=== PATIENT | female | born 1980 | race Caucasian/White ===

== ENCOUNTER 2020-03-30 12:51 | Emergency (ER) | payer BC ==
[2020-03-30 13:06] VITALS: BP 145/109; PULSE 100
[2020-03-30] MEDS ORDERED: Ketorolac 30 MG/ML SDV IM ONE (13:31)
--- NOTE | 2020-03-30 14:24 | EDM.PDOC ---
Scribed by Concepcion Richards 03/30/20 2886 for Natalya Velasquez MD ED HPI GENERAL MEDICAL PROBLEM - General Chief Complaint: Upper Extremity Injury/Pain Stated Complaint: SEVRE BACK PAIN Time Seen by Provider: 03/30/20 13:23 Source of Information: Reports: Patient, RN, RN Notes Reviewed History Limitations: Reports: No Limitations - History of Present Illness INITIAL COMMENTS - FREE TEXT/NARRATIVE: Patient presents to the ER with hip pain for a weeks ago. She eventually goes to chiropractor when it appears and it goes away or she waits it out, but not this time. Yesterday she was to [place] with daughter to [employer] and had trouble getting out of the car. At home she rested and took OTC. This A.M. woke again with pain adn took Aleve, Tylenol and Advil. It was better, then rolled back and thought something exploded back there. Last seen in ER 7 years ago. Wednesday if her next approximately. No numbness or tingling. Onset: Gradual Duration: Getting Worse Location: Reports: Back Quality: Reports: Ache Severity: Moderate Improves with: Reports: None Worsens with: Reports: None Associated Symptoms: Reports: No Other Symptoms - Related Data Allergies Allergy/AdvReac Type Severity Reaction Status Date / Time Penicillins Allergy Hives Verified 03/30/20 13:01 Sulfa (Sulfonamide Allergy Hives Verified 03/30/20 13:01 Antibiotics) Home Meds: Home Meds Amitriptyline [Elavil] 25 mg PO BEDTIME 02/13/16 [History] Hydroxychloroquine Sulfate [Plaquenil] 200 mg PO DAILY 02/13/16 [History] Metoprolol Succinate [Toprol XL 100mg] 200 mg PO DAILY 02/13/16 [History] Sertraline HCl [Zoloft] 100 mg PO DAILY 02/13/16 [History] Past Medical History Cardiovascular History: Reports: Hypertension Respiratory History: Reports: None Gastrointestinal History: Reports: None Genitourinary History: Reports: None [employer]IC History: Reports: None Musculoskeletal History: Reports: SLE, Other (See Below) Other Musculoskeletal History: chronic hip pain Neurological History: Reports: None Psychiatric History: Reports: Depression Endocrine/Metabolic History: Reports: Obesity/BMI 30+ Hematologic History: Reports: None Immunologic History: Reports: None Oncologic (Cancer) History: Reports: None Dermatologic History: Reports: None - Infectious Disease History Infectious Disease History: Reports: None - Past Surgical History Head Surgeries/Procedures: Reports: None HEENT Surgical History: Reports: Myringotomy w Tube(s), Tonsillectomy Social & Family History - Family History Family Medical History: Noncontributory - Tobacco Use Smoking Status *Q: Heavy Tobacco Smoker Years of Tobacco use: 20 Packs/Tins Daily: 1 - Caffeine Use Caffeine Use: Reports: Coffee, Soda, Tea - Recreational Drug Use Recreational Drug Use: No - Living Situation & Occupation Living situation: Reports: with Family, Occupation: Employed Review of Systems - Review of Systems Review Of Systems: Comprehensive ROS is negative, except as noted in HPI. ED EXAM, GENERAL - Physical Exam Exam: See Below Exam Limited By: No Limitations General Appearance: Alert, WD/WN, No Apparent Distress Eye Exam: Bilateral Eye: EOMI, Normal Inspection, PERRL Ears: Normal External Exam, Normal Canal, Hearing Grossly Normal, Normal TMs Nose: Normal Inspection, Normal Mucosa, No Blood Throat/Mouth: Normal Inspection, Normal Lips, Normal Teeth, Normal Gums, Normal Oropharynx, Normal Voice, No Airway Compromise Head: Atraumatic, Normocephalic Neck: Normal Inspection, Supple, Non-Tender, Full Range of Motion Respiratory/Chest: No Respiratory Distress, Lungs Clear, Normal Breath Sounds, No Accessory Muscle Use, Chest Non-Tender Cardiovascular: Normal Peripheral Pulses, Regular Rate, Rhythm, No Edema, No Gallop, No JVD, No Murmur, No Rub GI/Abdominal: Normal Bowel Sounds, Soft, Non-Tender, No Organomegaly, No Distention, No Abnormal Bruit, No Mass (Female) Exam: Deferred Rectal (Female) Exam: Deferred Back Exam: Normal Inspection, Full Range of Motion, NT Extremities: Other (right hip/lateral back. TTP over right SI joint.) Neurological: Alert, Oriented, CN II-XII Intact, Normal Cognition, Normal Gait, Normal Reflexes, No Motor/Sensory Deficits Psychiatric: Normal Affect, Normal Mood Skin Exam: Warm, Dry, Intact, Normal Color, No Rash Lymphatic: No Adenopathy Course - Vital Signs Last Recorded V/S: Last Vital Signs Temp 97.3 F 03/30/20 13:03 Pulse 100 03/30/20 13:03 Resp 18 03/30/20 13:03 BP 145/109 H 03/30/20 13:03 Pulse Ox 100 03/30/20 13:03 - Orders/Labs/Meds Meds: Medications Discontinued Medications Generic Name Dose Route Start Last Admin Trade Name Jim PRN Reason Stop Dose Admin Ketorolac Tromethamine 60 mg 03/30/20 13:31 03/30/20 13:55 Toradol IM 03/30/20 13:32 60 mg ONETIME ONE Administration Departure - Departure Time of Disposition: 14:21 Disposition: Home, Self-Care 01 Condition: Good Clinical Impression: SI (sacroiliac) joint inflammation - Discharge Information *PRESCRIPTION DRUG MONITORING PROGRAM REVIEWED*: Not Applicable *COPY OF PRESCRIPTION DRUG MONITORING REPORT IN PATIENT TERRANCE: Not Applicable Instructions: Sacroiliac Joint Dysfunction Forms: ED Department Discharge Additional Instructions: Avoid use of aleve and advil while taking prednisone. May still take tylenol Sepsis Event Note (ED) - Evaluation Sepsis Screening Result: No Definite Risk - Focused Exam Vital Signs: Vital Signs Temp Pulse Resp BP Pulse Ox 03/30/20 13:03 97.3 F 100 18 145/109 H 100 - Assessment/Plan Assessment:: 40 yo female with acute flare of SI joint inflammation Plan: Toradol in the ER Prednisone script for steroid burst. Avoid NSAID use while taking. May take tylenol Keep upcoming chiropractor appointment I have read and agree with the documentation that has been completed regarding this visit. By signing this record, I attest that the documentation was completed in my physical presence and is an accurate record of the encounter.
== END 2020-03-30 14:29 | disposition home or self-care (01) ==
LOC: DL.ED 12:51
DX: M46.1 Sacroiliitis, not elsewhere classified (principal); E66.9 Obesity, unspecified; F32.9 Major depressive disorder, single episode, unspecified; I10 Essential (primary) hypertension; F17.210 Nicotine dependence, cigarettes, uncomplicated; Z79.899 Other long term (current) drug therapy; Z68.42 Body mass index [BMI] 45.0-49.9, adult; Z88.0 Allergy status to penicillin; Z88.2 Allergy status to sulfonamides
CPT/HCPCS: 96372; 99283; J1885